=== PATIENT | male | born 1975 | race Caucasian/White ===

== ENCOUNTER → 2019-06-26 | Outpatient (CLI) | payer OTHER | LOC: COL.VAS 13:18 | DX: R60.0 Localized edema (principal) ==

== ENCOUNTER → 2020-06-18 | Outpatient (CLI) | payer OTHER | LOC: MHCPAIN 14:06 | DX: M79.18 Myalgia, other site (principal); M54.2 Cervicalgia; G89.29 Other chronic pain | CPT/HCPCS: G0463 ==